=== PATIENT | female | born 1990 | race Caucasian/White ===

== ENCOUNTER → 2017-06-28 18:17 | Outpatient (CLI) | payer OTHER, SELFPAY ==
[2017-04-07 16:16] VITALS: BMI 24.2
[2017-04-08 03:30] VITALS: BP 85/50
[2017-04-08 06:00] VITALS: BP 86/58
[2017-06-28 19:18] LABS: Group B Strep DNA By PCR Negative (Negative); Internal Control PASS; Probe Check PASS; Specimen Processing Control PASS
== END ==
PROVIDERS: Family Provider Nurse Practitioner; PCP Nurse Practitioner; Visit Provider Obstetrics & Gynecology
DX: Z36.85 Encounter for antenatal screening for Streptococcus B (principal)
CPT/HCPCS: 87081; 87653

== ENCOUNTER 2017-07-22 11:07 | Inpatient (IN) | payer OTHER, SELFPAY ==
[2017-07-22 11:45] LABS: Hematocrit 34.1 % (37-47); Hemoglobin 11.4 g/dl (12.0-15.0); Mean Corp Hgb Conc 33.4 g/gl (32-36); Mean Corpuscular Hgb 31.9 pg (27.0-32.0); Mean Corpuscular Volume 95.5 fL (81-99); Mean Platelet Vol. 9.6 fl (6.2-12.0); Platelet Count 289 K/mm3 (150-450); RBC Distribution Width SD 46.7 fl (35.1-43.9); Red Blood Count 3.57 M/mm3 (4.2-5.4); White Blood Count 12.3 K/mm3 (4.4-11.0)
[2017-07-22] MEDS: Lactated Ringers 1,000 ML 50 ML IV (11:45)
[2017-07-22 11:46] VITALS: BMI 28.5
[2017-07-22 11:47] LABS: Scan Indicated on CBC? Y/N NO
[2017-07-22] MEDS: Oxytocin 30 units/NS 500 ml 30 UNITS/500 ML IV.SOLN IV (12:39)
--- NOTE | 2017-07-22 16:43 | PCM.PN.BLA ---
Progress Note LABOR PROGRESS NOTE. 38 3/7 wk SROM. Early labor. Prodromal Not feeling painful UCs. Some mild cramping only. AVSS Pitocin at 8 mIU/min EFM 120-130s with avg variability. Accels. Category I Occasional variable. UCs q 2-4+ mins CX: deferred due to SPROM A/P; 38 3/7 wk EGA SROM. Early labor, prodromal phase. Pitocin induction after SPROM. Continue pitocin for up to 24 hr prior to dx of failed induction.
[2017-07-22] MEDS: Nalbuphine 10 MG/ML Ampul IV (20:54)
[2017-07-22] MEDS: Ondansetron 4 MG/2 ML Vial IV (20:55)
[2017-07-22] MEDS: 0.9% Saline Lock 10 ML Syringe IV (20:55)
[2017-07-22] MEDS: Oxytocin 30 units/NS 500 ml 30 UNITS/500 ML IV.SOLN 334 UNITS IV (23:11)
--- NOTE | 2017-07-22 23:26 | PCM.OB.VAG ---
Vaginal Delivery Maternal Presentation: Active Labor, Spontaneous Rupture of Membranes Amniotic Membrane Rupture Type: Spontaneous at home Amniotic Fluid Description: Clear Final KATELIN: 08/02/17 Gestational age: 38 Weeks and 3 Days Date of Procedure: 07/22/17 Pre-Operative Diagnosis: IUP Post-Operative Diagnosis: IUP Surgery/ Procedure Performed: Spontaneous Vaginal Delivery Type of Anesthesia: Local with 2% lidocaine Description of Procedure: Spontaneous vaginal delivery of a viable female with Apgars of 8/9 with a normal three-vessel placenta and cord around the neck ?1 loose. No episiotomy. Second-degree midline laceration repaired in layers with 3-0 repeat suture under local. Sponge counts okay. Delivery physician: Karlos Moralez MD. Presentation: Vertex Placental Delivery Description: Spontaneous Placenta Disposition: [facility] Cord Vessel Description: 3 Vessels Cord Gases drawn per routine: ABG Cord Entanglement: Around neck x 1, loose Estimated Blood Loss: 250 cc A gender: Female (1 minute): 8 (5 minute): 9 Episiotomy Description: None Laceration: Midline, Perineal Extension/lac, 2nd degree Medications given after delivery: IV Pitocin Complications: None
--- NOTE | 2017-07-22 23:29 | PCM.DCVAG ---
Discharge Diet: No Restrictions Discharge Activity: May Shower, May Take a Tub Bath May resume sexual activity in: 4-6 weeks Additional Activity Instructions:: Nothing in the vagina for 4-6 weeks. You may return to work/school in 6 weeks. Call your doctor if you observe: Fever of 101 or Higher, Inability to urinate, Inability to have a bowel movement, Using more than one pad per hour Additional Instructions: If you experience any of the following, contact your healthcare provider. Bleeding that soaks a pad every hour for 2 hours Unrelieved incision or abdominal pain Swelling, redness, discharge or bleeding from your incision or episiotomy site Your incision begins to separate Problems urinating (including inability to urinate or burning while urinating). Visual changes Severe headache Flu-like symptoms Pain or redness in one of both of your breasts Pain, warmth, tenderness or swelling in your legs, especially the calf area Frequent nausea and vomiting Symptoms of depression or anxiety If you experience any of the following, call 911 or go to the nearest Emergency Room. Chest pain Problems breathing Seizure activity Partial or complete paralysis of a body part, slurred speech, weakness or drooping of the face, or a sudden inability to walk or hold your balance Allergies/Adverse Reactions: Allergies No Known Allergies Allergy (Verified 07/22/17 11:46) Medications to take at Discharge Vits [Prenatabs FA ] 1 tablet PO DAILY 04/07/17 Ranitidine [Zantac] 150 mg PO DAILY 04/07/17 Ferrous Sulfate 07/22/17 Please Follow Up With: Isabell Thomas MD - [phone] When: Call to make an appointment with your doctor in 6 weeks. Primary Care Physician: Brooklynn Camacho [Primary Care Provider] -
--- NOTE | 2017-07-22 23:30 | DCINST_ITS ---
Discharge Diet: No Restrictions Discharge Activity: May Shower, May Take a Tub Bath May resume sexual activity in: 4-6 weeks Additional Activity Instructions:: Nothing in the vagina for 4-6 weeks. You may return to work/school in 6 weeks. Call your doctor if you observe: Fever of 101 or Higher, Inability to urinate, Inability to have a bowel movement, Using more than one pad per hour Additional Instructions: If you experience any of the following, contact your healthcare provider. * Bleeding that soaks a pad every hour for 2 hours * Unrelieved incision or abdominal pain * Swelling, redness, discharge or bleeding from your incision or episiotomy site * Your incision begins to separate * Problems urinating (including inability to urinate or burning while urinating) . * Visual changes * Severe headache * Flu-like symptoms * Pain or redness in one of both of your breasts * Pain, warmth, tenderness or swelling in your legs, especially the calf area * Frequent nausea and vomiting * Symptoms of depression or anxiety If you experience any of the following, call 911 or go to the nearest Emergency Room. * Chest pain * Problems breathing * Seizure activity * Partial or complete paralysis of a body part, slurred speech, weakness or drooping of the face, or a sudden inability to walk or hold your balance Allergies/Adverse Reactions: Allergies No Known Allergies Allergy (Verified 07/22/17 11:46) Medications to take at Discharge Vits [Prenatabs FA ] 1 tablet PO DAILY 04/07/17 Ranitidine [Zantac] 150 mg PO DAILY 04/07/17 Ferrous Sulfate 07/22/17 Please Follow Up With: Isabell Thomas MD - [phone] When: Call to make an appointment with your doctor in 6 weeks. Primary Care Physician: Brooklynn Camacho [Primary Care Provider] -
[2017-07-22] MEDS: Oxytocin 30 units/NS 500 ml 30 UNITS/500 ML IV.SOLN 167 UNITS IV (23:41)
[2017-07-23] MEDS: 0.9% Saline Lock 10 ML Syringe IV (00:41)
[2017-07-23 03:45] VITALS: BP 114/75; PULSE 87; RESP 17; TEMP 37; O2SAT 95
[2017-07-23 08:24] VITALS: BP 115/83; PULSE 88; RESP 16; TEMP 36.9; O2SAT 96
[2017-07-23] MEDS: Ibuprofen 600 MG Tablet PO ×2 (08:39→14:46)
--- NOTE | 2017-07-23 10:49 | PCM.PN.OB ---
Subjective: Patient without complaints. Minimal vaginal bleeding. - Physical Exam Vital Signs AF, VSS Temp Pulse Resp BP Pulse Ox 98.4 F 88 16 115/83 H 96 07/23/17 08:24 07/23/17 08:24 07/23/17 08:24 07/23/17 08:24 07/23/17 08:24 Oxygen Delivery Method Room Air Weight: 155 lb 13.869 oz Body Mass Index (BMI) 28.5 Intake and Output for Last 24 Hours 07/21/17 07/22/17 07/23/17 23:59 23:59 23:59 Intake Total 410 / 410 Output Total 1025 / 1025 Balance 410 / 410 -1025 / -1025 Laboratory Tests Past 24 Hrs 07/22/17 07/22/17 11:30 11:30 WBC 12.3 H RBC 3.57 L Hgb 11.4 L Hct 34.1 L MCV 95.5 MCH 31.9 MCHC 33.4 RDW 14.0 RDW Differential 46.7 H Plt Count 289 MPV 9.6 Blood Type O POSITIVE Antibody Screen NEGATIVE Assessment/Plan Doing well. Continuing present care.
[2017-07-23 11:56] VITALS: BP 123/66; PULSE 108; RESP 16; TEMP 36.8; O2SAT 98
[2017-07-23 15:53] VITALS: BP 115/80; PULSE 93; RESP 16; TEMP 36.7; O2SAT 98
[2017-07-23 19:30] VITALS: BP 121/82; PULSE 95; RESP 17; TEMP 36.6; O2SAT 95
[2017-07-23 23:45] VITALS: BP 114/69; PULSE 92; RESP 17; TEMP 36.6; O2SAT 96
[2017-07-24 04:50] VITALS: BP 120/86; PULSE 108; RESP 18; TEMP 36.8; O2SAT 96
[2017-07-24] MEDS: Acetaminophen 500 MG Tablet 1000 MG PO (04:59)
[2017-07-24 08:00] VITALS: BP 116/74; PULSE 86; RESP 16; TEMP 36.9; O2SAT 95
--- NOTE | 2017-07-24 08:59 | PCM.PN.OB ---
Subjective: Patient without complaints. Breast-feeding going well. Minimal vaginal bleeding. Ready to go home. - Physical Exam Vital Signs AF, VSS Temp Pulse Resp BP Pulse Ox 98.4 F 86 16 116/74 95 07/24/17 08:00 07/24/17 08:00 07/24/17 08:00 07/24/17 08:00 07/24/17 08:00 Oxygen Delivery Method Room Air Weight: 155 lb 13.869 oz Body Mass Index (BMI) 28.5 Intake and Output for Last 24 Hours 07/22/17 07/23/17 07/24/17 23:59 23:59 23:59 Intake Total 410 / 410 Output Total 1025 / 1025 Balance 410 / 410 -1025 / -1025 Assessment/Plan Doing well. Will release to home with routine instructions. Follow-up in 6 weeks.
[2017-07-24 12:50] VITALS: BP 123/84; PULSE 108; RESP 18; TEMP 37
== END 2017-07-24 12:50 | disposition home or self-care (01) | DRG 775 ==
PROVIDERS: Admitting Provider Obstetrics & Gynecology; Family Provider Nurse Practitioner; PCP Nurse Practitioner; Visit Provider Obstetrics & Gynecology
DX: O42.02 Full-term premature rupture of membranes, onset of labor within 24 hours of rupture (principal); D64.9 Anemia, unspecified; O69.81X0 Labor and delivery complicated by cord around neck, without compression, not applicable or unspecified; O70.1 Second degree perineal laceration during delivery; O99.02 Anemia complicating childbirth; Z37.0 Single live birth; Z3A.38 38 weeks gestation of pregnancy
CPT/HCPCS: 59025; 59050; 85027; 86850; 86900; 99218; J7120; A4216; G0378; J2405

== ENCOUNTER → 2021-03-10 | Outpatient (CLI) | payer OTHER, SELFPAY | END | disposition home or self-care (01) | LOC: LABSPEC 03-11 06:20 | PROVIDERS: PCP Nurse Practitioner; Referring Provider Family Medicine; Visit Provider Family Medicine | DX: Z20.828 Contact with and (suspected) exposure to other viral communicable diseases (principal) | CPT/HCPCS: 87635; U0005; U0003 ==

== ENCOUNTER → 2022-07-27 | Outpatient (CLI) | payer BC, SELFPAY ==
[2022-07-30 00:07] LABS: Chlamydia By Nucleic Acid AMP Negative (Negative)
[2022-07-30 08:28] LABS: Gonococcus By Nucleic Acid AMP Negative (Negative)
[2022-08-03 13:36] LABS: HPV APTIMA, High Risk Negative (Negative)
== END | disposition home or self-care (01) ==
LOC: LABSPEC 14:35
PROVIDERS: PCP Family Medicine; Visit Provider Obstetrics & Gynecology
DX: Z34.90 Encounter for supervision of normal pregnancy, unspecified, unspecified trimester (principal)
CPT/HCPCS: 87086; 87491; 87591; 87624; 88175; G0145

== ENCOUNTER → 2022-08-12 | Outpatient (CLI) | payer BC, SELFPAY ==
[2022-08-12 13:36] LABS: Absolute Lymphocyte Count 1.67 X10^3/uL (0.83-4.51); Absolute Neutrophil Count 5.7 X10^3/uL (2.0-7.7); Basophil# 0.03 X10^3/uL; Basophil% 0.4 % (0-1); Eosinophil# 0.08 X10^3/uL; Hematocrit 38.8 % (37-47); Lymphocyte # 1.67 X10^3/ul (0.83-4.51); Lymphocyte % 20.7 % (19-41); Mean Corp Hgb Conc 33.5 g/dL (32-36); Mean Corpuscular Hgb 30.4 pg (27.0-32.0); Mean Corpuscular Volume 90.9 fL (81-99); Mean Platelet Vol. 9.2 fl (6.2-12.0); Monocyte# 0.57 X10^3/uL; Monocyte% 7.1 % (0-10); NRBC Flagged by Analyzer 0 % (0-5); Neutrophil % 70.4 % (47-70); Platelet Count 304 K/mm3 (150-450); RBC Distribution Width CV 12.3 % (11.6-14.6); RBC Distribution Width SD 40.6 fl (35.1-43.9); Red Blood Count 4.27 M/mm3 (4.2-5.4); White Blood Count 8.1 K/mm3 (4.4-11.0)
[2022-08-12 14:21] LABS: NATERA MAILED SPECIMEN
[2022-08-12 15:09] LABS: HIV - WCH Non-Reactive (Nonreactive); Hepatitis B Surface Antigen Non-Reactive (Nonreactive); Hepatitis C Antibody Non-Reactive (Nonreactive); Rubella IgG Reactive (Nonreactive); Syphilis Antibodies Non-reactive
== END | disposition home or self-care (01) ==
LOC: PAVLAB 13:01
PROVIDERS: PCP Family Medicine; Referring Provider Obstetrics & Gynecology; Visit Provider Obstetrics & Gynecology
DX: Z34.81 Encounter for supervision of other normal pregnancy, first trimester (principal); Z31.430 Encounter of female for testing for genetic disease carrier status for procreative management
CPT/HCPCS: 36415; 85025; 86703; 86762; 86780; 86803; 86850; 86900; 86901; 87340

== ENCOUNTER → 2022-12-14 | Outpatient (CLI) | payer BC, SELFPAY ==
[2022-12-14 15:34] LABS: Absolute Lymphocyte Count 1.15 X10^3/uL (0.83-4.51); Absolute Neutrophil Count 7.4 X10^3/uL (2.0-7.7); Basophil# 0.03 X10^3/uL; Basophil% 0.3 % (0-1); Eosinophil# 0.11 X10^3/uL; Eosinophils% 1.1 % (0-5); Hematocrit 27.4 % (37-47); Hemoglobin 9.1 g/dL (12.0-15.0); Lymphocyte # 1.15 X10^3/ul (0.83-4.51); Lymphocyte % 11.9 % (19-41); Mean Corp Hgb Conc 33.2 g/dL (32-36); Mean Corpuscular Hgb 32.2 pg (27.0-32.0); Mean Corpuscular Volume 96.8 fL (81-99); Mean Platelet Vol. 9.4 fl (6.2-12.0); Monocyte# 0.76 X10^3/uL; Monocyte% 7.9 % (0-10); NRBC Flagged by Analyzer 0 % (0-5); Neutrophil # 7.41 X10^3/uL (2.7-7.7); Neutrophil % 76.5 % (47-70); Platelet Count 284 K/mm3 (150-450); RBC Distribution Width SD 45.8 fl (35.1-43.9); Red Blood Count 2.83 M/mm3 (4.2-5.4); White Blood Count 9.7 K/mm3 (4.4-11.0)
[2022-12-14 16:15] LABS: Glucose Challenge Gest 1H 50g 134 mg/dL (70-140)
[2022-12-14 17:12] LABS: HIV - WCH Non-Reactive (Nonreactive); Syphilis Antibodies Non-reactive
== END | disposition home or self-care (01) ==
LOC: PAVLAB 14:48
PROVIDERS: PCP Family Medicine; Referring Provider Obstetrics & Gynecology; Visit Provider Obstetrics & Gynecology
DX: O09.90 Supervision of high risk pregnancy, unspecified, unspecified trimester (principal); Z13.1 Encounter for screening for diabetes mellitus; Z3A.00 Weeks of gestation of pregnancy not specified
CPT/HCPCS: 36415; 82950; 85025; 86703; 86780

== ENCOUNTER → 2023-01-13 | Outpatient (CLI) | payer BC, SELFPAY ==
[2023-01-13 15:13] LABS: Hematocrit 29.7 % (37-47); Hemoglobin 10.1 g/dL (12.0-15.0); Mean Corpuscular Hgb 33.8 pg (27.0-32.0); Mean Corpuscular Volume 99.3 fL (81-99); Mean Platelet Vol. 9.3 fl (6.2-12.0); Platelet Count 255 K/mm3 (150-450); RBC Distribution Width CV 13.8 % (11.6-14.6); RBC Distribution Width SD 49.6 fl (35.1-43.9); Red Blood Count 2.99 M/mm3 (4.2-5.4); White Blood Count 10.5 K/mm3 (4.4-11.0)
== END | disposition home or self-care (01) ==
PROVIDERS: PCP Family Medicine; Referring Provider Obstetrics & Gynecology; Visit Provider Obstetrics & Gynecology
DX: D64.9 Anemia, unspecified (principal)
CPT/HCPCS: 36415; 85027

== ENCOUNTER → 2023-02-07 | Outpatient (CLI) | payer BC, SELFPAY | END | disposition home or self-care (01) | LOC: LABSPEC 16:49 | PROVIDERS: PCP Family Medicine; Referring Provider Nurse Practitioner Women's Health; Visit Provider Nurse Practitioner Women's Health | DX: Z34.90 Encounter for supervision of normal pregnancy, unspecified, unspecified trimester (principal) | CPT/HCPCS: 87081 ==

== ENCOUNTER → 2023-02-08 | Outpatient (CLI) | payer BC, SELFPAY ==
--- NOTE | 2023-02-08 14:11 | US_ITS ---
INDICATION: growth with DANIEL EXAMINATION: Ultrasound US OB Limited 1 Or More Fetus TECHNIQUE: transabdominal pelvic ultrasound was performed. Grayscale, spectral waveform, and color flow Doppler evaluation of the adnexa. COMPARISON: None. LMP: 05/28/2022 Beta-hCG: Unknown. Provided EGA: 36 weeks 4 days FINDINGS: INTRAUTERINE GESTATION(s): Single. ESTIMATED GESTATIONAL AGE: 36 weeks 2 days ESTIMATED DUE DATE (KATELIN): 03/08/2023 HEART MOTION is 155 bpm. AMNIOTIC FLUID INDEX (DANIEL): 14.4 cm ESTIMATED WEIGHT: 2826 g or 6 lbs. 4 oz. Percentile 39th%. BIOPHYSICAL PROFILE (BPP): Not assessed. PRESENTATION: Breech PLACENTA: Fundal. There is no placenta previa or abruption. CERVIX: The cervix is not visualized. US/OB Limited With Biometrics IMPRESSION: Single live intrauterine of 36 weeks 2 days. Electronically Signed: Bill Yates MD at 0:32 EDT ,
== END | disposition home or self-care (01) ==
PROVIDERS: PCP Family Medicine; Referring Provider Advanced Practice Midwife; Visit Provider Advanced Practice Midwife
DX: O32.1XX0 Maternal care for breech presentation, not applicable or unspecified (principal); Z3A.00 Weeks of gestation of pregnancy not specified
CPT/HCPCS: 76816

== ENCOUNTER 2023-02-11 06:30 | Outpatient (CLI) | payer BC, SELFPAY ==
[2023-02-11] MEDS: Lactated Ringers 1,000 ML 125 ML IV (06:50)
[2023-02-11 06:51] VITALS: BMI 28.2
[2023-02-11 06:55] VITALS: BP 111/83; PULSE 108; PULSE 93; O2SAT 99
[2023-02-11 07:56] VITALS: BP 113/79; PULSE 99
--- NOTE | 2023-02-11 08:15 | OP.PCM_ITS ---
Problems Associated Problem List Diagnoses (1) Breech presentation: (2) Heartburn during : (3) Anemia: (4) Seasonal allergies: (5) Supervision of high risk , antepartum: (6) : Report of Operation Date of Procedure: 02/11/23 Pre-Operative Diagnosis: 33 y/o @ 37 weeks 0 days, breech presentation, desires external version Post-Operative Diagnosis: 33 y/o @ 37 weeks 0 days, breech presentation, desires external version Surgery/Procedure Performed:: external cephalic version Description of Surgical Findings:: The risks, benefits, and alternatives of the procedure were dicussed with the patient . The fetus was found to be in breech presentation informed by ultrasound. DANIEL 10.0. Patient had an IV in place, normal amniotic fluid, no contraindications to a vaginal delivery, and reactive nonstress test prior to the procedure. Patient was placed in the dorsal supine position with a leftward tilt. Ultrasound gel was applied to the patient's abdomen and using constant upward pressure to elevate the buttocks out of the pelvic inlet constant pressure was applied to the buttocks and to the area behind the back of the neck and head to encourage a forward roll of the fetus. Constant pressure was applied and slowly the infant was converted to a RLQ presentation. while the ultrasound was performed the fetus moved back to the ruq. The procedure was repeated 2 more times and each time the fetus reverted to the ruq. After 10 minutes the procedure was aborted. Patient was replaced on the NST and monitored to assure reassuring status. No complications. Surgeon: Melany Castorena well head pumper: None Type of Anesthesia: None Multi Select Codes Urinary/Genital Urinary/Genital CPT Codes: 11557 ECV
--- NOTE | 2023-02-11 08:22 | HP.PCM.OB_ITS ---
HPI - General HPI Narrative LUCIEN MARTELL, is a 33 F who presents Maternal Data Information KATELIN Calculator Estimated Delivery Date Method Current WG Current Estimate 03/04/23 LMP (Certain) 37w 0d PFSH PFSH Medical History History of HPV infection Home Medications vits,calcium no.78-iron fumarate-folic acid 29 mg-1 mg tablet (Prenatabs FA) 1 tab PO DAILY 04/07/17 [History Last Taken 02/10/23 22:00] ferrous sulfate 325 mg (65 mg iron) tablet (Feosol) 325 mg PO DAILY 02/11/23 [History Last Taken 02/10/23 08:00] magnesium 200 mg tablet 200 mg PO DAILY 02/11/23 [History Last Taken 02/10/23 22:00] omeprazole 20 mg-sodium bicarbonate 1.1 gram capsule (Zegerid) 1 cap PO DAILY 02/11/23 [History Last Taken 02/10/23 08:00] Allergy/AdvReac Type Severity Reaction Status Date / Time hydrocodone [From Vicodin] AdvReac Unknown vomitting Verified 02/11/23 06:52 Family History Grandmother Colon cancer, Onset Age: 62 maternal Grandfather Pancreatic cancer, Onset Age: 62 Maternal Surgical History History of appendectomy [place] teeth extracted Social History adopted: No household members: spouse and children number of children: 1 current occupational status: employed current occupation: [employer] current occupational exposures/hazards: No pets and animals: No history of recent travel: Yes ([place] in January) out of state: Yes out of country: No sexually active: Yes Smoking Status: Never smoker alcohol intake: never substance use type: does not use well-balanced diet: rarely or never caffeine: Yes (half a cup of coffee or pop daily) eating out: 1-3 times/week during the past year weight has: remained stable what type of physical activity do you participate in: none artis/taoism: Adventist seatbelt use: always do you feel safe at home: Yes additional social history: - 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 History 2 Elective abortions Hx Para 1 Spontaneous abortions Hx # Term Pregnancies Ectopic pregnancies Hx # Pregnancies Multiple births # of living children 1 Past Pregnancies Del. Date Name GA/Weeks Outcome Route Bth Weight Infant Gen Labor Lgth Anesthesia Del Locatn Provider FOB 07/22/17 Theia 38 live - full term 7#3oz Female 16 Hr none [facility] [place] Delivery Date: 07/22/17 Last Updated by: Evie Soni IOL- water broke before contractions Visit Details Expected Delivery Route/Plan Labor Preferences- CB/BF classes: labor support person: Chuck labor intervention preferences: [] pain management options preferred: limited cut cord/dad catch: yes : yes PP control planned: discussed discussed possible routes of delivery and associated risks: [] special requests: [] Plans Covid status: 2 initially Flu vaccine: declines Tdap vaccine: declines Rhogam: na LARC form signed: completed Problem list reviewed and updated with the most current plan of care details and appropriate orders placed. Relevant counseling for the gestational age provided. Continue routine care and follow up unless otherwise noted in visit notes/problem list details OB Flowsheet Initial Weight: Not Recorded Date -?-?-?-?-?-?-?-?-?-?-?-?- EGA Weight BP Urine Prot -?-?-?-?-?-?-?-?-?-?-?-?- Glucose FHR FuHt Pres Dilation -?-?-?-?-?-?-?-?-?-?-?-?- Effaced St Visit Note 07/27/22 -?-?-?-?-?-?-?-?-?-?-?-?- 8w 4d 126 lb 8 oz 121/81 -?-?-?-?-?-?-?-?-?-?-?-?- 185 -?-?-?-?-?-?-?-?-?-?-?-?- JV- single live IUP measuring 9 weeks 0 days, by LMP is 8 weeks 4 days and consistent with LMP. desires NIPT 08/24/22 -?-?-?-?-?-?-?-?-?-?-?-?- 12w 4d 121 lb 8 oz 121/85 -?-?-?-?-?-?-?-?-?-?-?-?- 160 -?-?-?-?-?-?-?-?-?-?-?-?- SM- SM- no vb cramping co some h eadache 09/20/22 -?-?-?-?-?-?-?-?-?-?-?-?- 16w 3d 123 lb 4 oz 121/81 Nega tive -?-?--?-?-?-?-?-?-?-?-?-?- Negative 165 -?-?-?-?-?-?-?-?-?-?-?-?- Lc- doing well. no concerns. declines afp. has anatomy scheduled. 10/19/22 -?-?-?-?-?-?-?-?--?-?-?-?- 20w 4d 128 lb 6 oz 112/68 Nega tive -?-?-?-?-?-?-?-?-?-?-?-?- Negative 156 -?-?-?-?-?-?-?-?-?-?-?-?- MH-No Vb, LOF. G ood FM. Denies concerns 11/16/22 -?-?-?-?-?-?-?-?-?-?-?-?- 24w 4d 134 lb 6 oz 111/74 Nega tive -?-?-?-?-?-?-?-?-?-?-?-?- Negative 155 24 -?-?-?-?-?-?--?-?-?-?-?-?- JV- no lof, vagi nal bleeding, or dec fm. gct ordered. 12/14/22 -?-?-?-?-?-?-?-?-?-?-?-?- 28w 4d 139 lb 4 oz 107/73 Nega tive -?-?-?-?-?-?-?--?-?-?-?-?- Negative 145 28 -?-?-?-?-?-?-?-?-?-?-?-?- kw-+fm. no lof/v b/ctx. no concerns today. 12/27/22 -?-?-?-?-?-?-?-?-?-?-?-?- 30w 3d 142 lb 4 oz 115/70 Nega tive -?-?-?-?-?-?-?-?-?-?-?-?- Negative 142 30 -?-?-?-?-?-?-?-?-?-?-?-?- LC- no lof/vb/ct x. good fm. taking pepcid for increased heart burn. 01/13/23 -?-?-?-?-?-?-?-?-?-?-?-?- 32w 6d 148 lb 4 oz 116/82 Nega tive -?-?-?-?-?-?-?-?-?-?-?-?- Negative 164 31 -?--?-?-?-?-?-?-?-?-?-?-?- JV- still strugg ling with heart burn despite 40 mg pepcid. will try OTC zegrid and let us know how that works. no other complaints. 01/27/23 -?-?-?-?-?-?--?-?-?-?-?-?- 34w 6d 150 lb 4 oz 125/76 Nega tive -?-?-?-?-?-?-?-?-?-?-?-?- Negative 140 34 Breech -?-?-?-?-?-?-?-?-?-?-?-?- KW-no lof/vb/ctx . good fm. Desires Version. US ordered 02/07/23 -?-?-?-?-?-?-?-?-?-?-?-?- 36w 3d 153 lb 4 oz 114/66 Nega tive -?-?-?-?-?-?-?-?-?-?-?-?- Negative 141 35 Cephalic 1 -?-?-?-?-?-?-?-?-?-?-?-?- 40 -2 MH-No VB, LOF. Good FM. States feels like baby turned. US tomorrow. MH-No VB, LOF. Good FM. Stat es feels like baby turned. US tomorrow. GBS done NST FHR Rate Baby A Baseline: 140 Variability:: Moderate Accelerations:: 15 x 15 Decelerations:: None NST Reactive:: Yes FHR Category:: Category I ROS Constitutional Constitutional: Denies change in weight, fatigue, fever(s), headache(s), poor appetite or weakness Eyes Eyes: Denies blurry vision, change in vision, seeing flashes or spots in vision ENT HEENT: Denies dizziness, headache(s), loss taste/smell or sore throat Cardiovascular Cardiovascular: Denies chest pain, dizziness, dyspnea, irregular heart rhythm, leg edema, palpitations, rapid heart rate or vomiting Respiratory/Chest Respiratory/Chest: Denies chest tightness, cough, dyspnea or breast pain Gastrointestinal Gastrointestinal: Denies abdominal pain, anorexia, constipation, cramping, diarrhea, hemorrhoids, vomiting or weight changes Genitourinary Genitourinary: Denies dysuria, flank pain, genital lesions, genital pain, urinary frequency or urinary urgency Musculoskeletal Musculoskeletal: Denies back pain, difficulty walking, joint pain, limited range of motion, muscle cramps or numbness Integumentary Integumentary: Denies lesions or unusual bruising Neurologic Neurologic: Denies abnormal movements, abnormal speech, dizziness, numbness, seizure-like activity or syncope Psychiatric Psychiatric: Denies anxiety, behavioral changes, change in appetite, change in libido, cognitive impairment, confusion, depression, difficulty concentrating, hallucinations or suicidal thoughts Endocrine Endocrinology: Denies excessive sweating, polydipsia or polyuria Hematologic/Lymphatic Hematologic/Lymphatic: Denies easy bleeding, easy bruising or lymphadenopathy Allergic/Immunologic Allergic/Immunologic: Denies itchy eyes, lip swelling, seasonal rhinorrhea, rhinitis, throat swelling, tongue swelling, eczemia, wheezing or asthma Vital Signs Vital Signs Vital Signs: 02/11/23 06:55 02/11/23 06:55 02/11/23 06:55 Pulse Rate 93 108 H Blood Pressure 111/83 H BP Systolic 111 BP Diastolic 83 Pulse Ox 02/11/23 06:55 02/11/23 07:56 02/11/23 07:56 Pulse Rate 99 Blood Pressure 113/79 BP Systolic 113 BP Diastolic 79 Pulse Ox 99 Weight Weight: 154 lb 5.177 oz Body Mass Index (BMI) 28.2 Physical Exam Const alert, oriented x3, no apparent distress and healthy appearing General Appearance: cooperative; Negative for anxious HEENT normocephalic Face and Sinus: normal facial exam Eyes EOMs intact bilaterally and no scleral icterus General Eye: normal appearance of both eyes Neck full ROM and supple Lymph Lymphatic: no lymphadenopathy noted Chest Chest: abnormal inspection of the chest Resp normal respiratory effort Effort and Inspection: able to speak in complete sentences Cardio regular rate GI soft to palpation and non-tender Inspection: gravid Palpation: soft; Negative for tender Back/Spine no CVA tenderness Extremity normal to inspection, full ROM and no clubbing, cyanosis or edema General Extremity: Negative for calf tenderness or edema Skin Lesions: no lesions Rashes: no rashes Psych mental status grossly normal Labs Labs Labs: Blood Type O POSITIVE Antibody Screen NEGATIVE Hct 29.7 % (37-47) L Hgb 10.1 g/dL (12.0-15.0) L Obstetrics US Syphilis Total Ab Non-reactive Rubella IgG Antibody Reactive (Nonreactive) Hep Bs Antigen Non-Reactive (Nonreactive) Chlamydia DNA (EMILIA) Negative (Negative) Neisseria gonorrhoeae DNA (EMILIA) Negative (Negative) HIV 1&2 Antibody Non-Reactive (Nonreactive) Glucose 1 Hr 50 gm 134 mg/dL (70-140) Group B Strep DNA Negative (Negative) Rhogam given: No Assessment & Plan (1) Breech presentation: QUALIFIERS: Fetus number: single or unspecified fetus Qualified Code(s): O32.1XX0 - Maternal care for breech presentation, not applicable or unspecified COMMENT: Feels cephalic. US 02/08. desires External version scheduled 02/11 at 730. needs to arrive at 630 PLAN: plan is to attempt external cephalic version. risks of stress causing heart rate changes, placental abruption, membrane rupture, and need for immediate section if any of these were to occur were discussed. A consent form was signed and NST was found to be adequate. -DANIEL 10, frannie breech presentation with head to right upper quadrant back to left and facing up. (2) Heartburn during : (3) Anemia: QUALIFIERS: Anemia type: iron deficiency Iron deficiency anemia type: unspecified iron deficiency Qualified Code(s): D50.9 - Iron deficiency anemia, unspecified COMMENT: start iron supplement. repeat cbc at 32 weeks. Improved (4) Seasonal allergies: (5) Supervision of high risk , antepartum: COMMENT: JUNIOR, KATELIN 03/04/23, MARK Meza, Chuck (6) : QUALIFIERS: Weeks of gestation: 32 weeks Qualified Code(s): Z3A.32 - 32 weeks gestation of COMMENT: NIPT low risk, carrier testing neg. . nl anatomy
== END 2023-02-11 10:29 | disposition home or self-care (01) ==
LOC: WPOUT 06:41 → WP 06:41
PROVIDERS: PCP Family Medicine; Referring Provider Obstetrics & Gynecology; Visit Provider Obstetrics & Gynecology
DX: O32.1XX0 Maternal care for breech presentation, not applicable or unspecified (principal); Z3A.37 37 weeks gestation of pregnancy; O99.891 Other specified diseases and conditions complicating pregnancy; R12 Heartburn; O99.013 Anemia complicating pregnancy, third trimester; D50.9 Iron deficiency anemia, unspecified; O99.513 Diseases of the respiratory system complicating pregnancy, third trimester; J30.2 Other seasonal allergic rhinitis
CPT/HCPCS: 96360; 96361; 59025; 59050; 76815; 99221; J7120; G0378

== ENCOUNTER 2023-02-20 11:10 | Outpatient (CLI) | payer BC, SELFPAY ==
[2023-02-20] VITALS (13 sets, daily range): BP systolic 120–135; BP diastolic 81–102; PULSE 68–100; TEMP 36.7; O2SAT 98–99; BMI 28.4
[2023-02-20] MEDS: Lactated Ringers 1,000 ML 999 ML IV (12:40)
[2023-02-20 12:48] LABS: Hematocrit 34.4 % (37-47); Hemoglobin 11.7 g/dL (12.0-15.0); Mean Corpuscular Hgb 33.6 pg (27.0-32.0); Mean Corpuscular Volume 98.9 fL (81-99); Mean Platelet Vol. 9.6 fl (6.2-12.0); Platelet Count 292 K/mm3 (150-450); RBC Distribution Width CV 14.6 % (11.6-14.6); RBC Distribution Width SD 51.5 fl (35.1-43.9); Red Blood Count 3.48 M/mm3 (4.2-5.4); White Blood Count 9.8 K/mm3 (4.4-11.0)
[2023-02-20 13:02] LABS: AST(SGOT) 21 U/L (15-37); Alanine Aminotransfer ALT/SGPT 20 U/L (13-56); Creatinine, Serum 0.59 mg/dL (0.55-1.02); EST Glomerular Filtration Rate 125 mL/min (>60); Est Glom Filt Rate - Afr Amer 151 mL/min (>60); Estimated Creatinine Clearance 106.26 ml/min; Uric Acid 3.7 mg/dL (2.6-6.0)
[2023-02-20 13:32] LABS: Protein, Urine (Random) 8.3 mg/dL (<11.9); Protein:Creat Ratio 444 mg/g CRE (0-200)
--- NOTE | 2023-02-27 09:57 | OB.TRI.PN_ITS ---
Progress Notes Date of Service: 02/20/23 Progress Note: Patient presents for triage evaluation secondary to decreased movement FHT: 140 moderate variability reactive no decelerations category I tracing [place]: Irregular contractions Assessment and plan: Decreased movement, initial blood pressures elevated preeclampsia work-up done and the only abnormality was elevated protein. Repeat blood pressures within normal limits reactive NST, reassuring maternal and status patient discharged to home to follow-up in the office this week for BPP and repeat blood pressure checks. See problem list details for additional plan information. Laboratory Studies: Laboratory Tests 02/20/23 Range/Units 12:35 WBC 9.8 (4.4-11.0) K/mm3 RBC 3.48 L (4.2-5.4) M/mm3 Hgb 11.7 L (12.0-15.0) g/dL Hct 34.4 L (37-47) % MCV 98.9 (81-99) fL MCH 33.6 H (27.0-32.0) pg MCHC 34.0 (32-36) g/dL RDW Std Deviation 51.5 H (35.1-43.9) fl RDW Coeff of Shruthi 14.6 (11.6-14.6) % Plt Count 292 (150-450) K/mm3 MPV 9.6 (6.2-12.0) fl Creatinine 0.59 (0.55-1.02) mg/dL Estim Creat Clear Calc 106.26 ml/min Est GFR (MDRD) Af Amer 151 (>60) mL/min Est GFR (MDRD) Non-Af 125 (>60) mL/min Uric Acid 3.7 (2.6-6.0) mg/dL AST 21 (15-37) U/L ALT 20 (13-56) U/L U Random Total Protein 8.3 (<11.9) mg/dL Urine Creatinine 18.70 (NO RANGE EST.) mg/dL Protein/Creatinin Ratio 444 H (0-200) mg/g CRE Blood Type O POSITIVE Antibody Screen NEGATIVE Charges/Coding Procedures Urinary/Genital 52xxx-59xxx: 82828-01 non-stress test Interp
== END 2023-02-20 14:00 | disposition home or self-care (01) ==
LOC: WPOUT 11:15 → WP 11:15
PROVIDERS: PCP Family Medicine; Visit Provider Obstetrics & Gynecology
DX: O36.8190 Decreased fetal movements, unspecified trimester, not applicable or unspecified (principal); Z3A.00 Weeks of gestation of pregnancy not specified; O99.891 Other specified diseases and conditions complicating pregnancy; R03.0 Elevated blood-pressure reading, without diagnosis of hypertension
CPT/HCPCS: 96360; 36415; 59025; 59050; 82565; 82570; 84156; 84450; 84460; 84550; 85027; 86850; 86900; 86901; J7120

== ENCOUNTER → 2023-02-21 | Outpatient (CLI) | payer BC, SELFPAY ==
[2023-02-21 16:05] LABS: Protein, Urine (Random) 9.8 mg/dL (<11.9); Protein:Creat Ratio 516 mg/g CRE (0-200)
== END | disposition home or self-care (01) ==
LOC: LABSPEC 15:25
PROVIDERS: PCP Family Medicine; Referring Provider Registered Nurse; Visit Provider Registered Nurse
DX: O12.10 Gestational proteinuria, unspecified trimester (principal); Z3A.00 Weeks of gestation of pregnancy not specified
CPT/HCPCS: 82570; 84156

== ENCOUNTER 2023-02-23 12:15 | Inpatient (IN) | payer BC, SELFPAY ==
[2023-02-23] VITALS (12 sets, daily range): BP systolic 112–130; BP diastolic 65–94; PULSE 60–98; RESP 14–18; TEMP 36.2–37.4; O2SAT 97–100; BMI 28.7
[2023-02-23] MEDS: Lactated Ringers 1,000 ML 999 ML IV (13:18)
[2023-02-23] MEDS: Acetaminophen 500 MG Tablet 1000 MG PO ×2 (13:19→20:10)
[2023-02-23 13:25] LABS: Absolute Lymphocyte Count 1.17 X10^3/uL (0.83-4.51); Absolute Neutrophil Count 5.9 X10^3/uL (2.0-7.7); Basophil# 0.03 X10^3/uL; Basophil% 0.4 % (0-1); Eosinophil# 0.07 X10^3/uL; Eosinophils% 0.9 % (0-5); Hematocrit 33.1 % (37-47); Hemoglobin 10.8 g/dL (12.0-15.0); Lymphocyte # 1.17 X10^3/ul (0.83-4.51); Lymphocyte % 14.5 % (19-41); Mean Corp Hgb Conc 32.6 g/dL (32-36); Mean Corpuscular Hgb 32.8 pg (27.0-32.0); Mean Corpuscular Volume 100.6 fL (81-99); Mean Platelet Vol. 9.9 fl (6.2-12.0); Monocyte# 0.79 X10^3/uL; Monocyte% 9.8 % (0-10); NRBC Flagged by Analyzer 0 % (0-5); Neutrophil # 5.91 X10^3/uL (2.7-7.7); Neutrophil % 73.2 % (47-70); Platelet Count 273 K/mm3 (150-450); RBC Distribution Width CV 14.6 % (11.6-14.6); Red Blood Count 3.29 M/mm3 (4.2-5.4); White Blood Count 8.1 K/mm3 (4.4-11.0)
--- NOTE | 2023-02-23 13:48 | HP.PCM.OB_ITS ---
HPI - General General Date of Admission: 02/23/23 HPI Narrative LUCIEN MARTELL, is a 33 F who presents with breech presentation and oligohydramnios Maternal Data Information KATELIN Calculator Estimated Delivery Date Method Current WG Current Estimate 03/04/23 LMP (Certain) 38w 5d PFSH [facility] Medical History (Updated 02/23/23 @ 14:[address] Linnette Pavon MD) Family history of hearing loss at age younger than 7 years Headache History of HPV infection Oligohydramnios Home Medications vits,calcium no.78-iron fumarate-folic acid 29 mg-1 mg tablet (Prenatabs FA) 1 tab PO DAILY 04/07/17 [History Last Taken 02/19/23 20:00] ferrous sulfate 325 mg (65 mg iron) tablet (Feosol) 325 mg PO DAILY 02/11/23 [History Last Taken 02/19/23 08:00] magnesium 200 mg tablet 200 mg PO DAILY 02/11/23 [History Last Taken 02/19/23 20:00] omeprazole 20 mg-sodium bicarbonate 1.1 gram capsule (Zegerid) 1 cap PO DAILY 02/11/23 [History Last Taken 02/19/23 08:00] Allergy/AdvReac Type Severity Reaction Status Date / Time hydrocodone [From Vicodin] AdvReac Unknown vomitting Verified 02/23/23 14:03 Family History Grandmother Colon cancer, Onset Age: 62 maternal Grandfather Pancreatic cancer, Onset Age: 62 Maternal Surgical History History of appendectomy [place] teeth extracted Social History adopted: No household members: spouse and children number of children: 1 current occupational status: employed current occupation: [employer] current occupational exposures/hazards: No pets and animals: No history of recent travel: Yes ([place] in [place]) out of state: Yes out of country: No sexually active: Yes Smoking Status: Never smoker alcohol intake: never substance use type: does not use well-balanced diet: rarely or never caffeine: Yes (half a cup of coffee or pop daily) eating out: 1-3 times/week during the past year weight has: remained stable what type of physical activity do you participate in: none artis/roman catholic: Sikh seatbelt use: always do you feel safe at home: Yes additional social history: - 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 History 2 Elective abortions Hx Para 1 Spontaneous abortions Hx # Term Pregnancies Ectopic pregnancies Hx # Pregnancies Multiple births # of living children 1 Past Pregnancies Del. Date Name GA/Weeks Outcome Route Bth Weight Gen Labor Lgth Anesthesia Del Locatn Provider FOB 07/22/17 Theia 38 live - full term 7#3oz Female 16 Hr none [facility] [place] Delivery Date: 07/22/17 Last Updated by: Evie Soni IOL- water broke before contractions Visit Details Expected Delivery Route/Plan LTCS for breech Plans Covid status: 2 initially Flu vaccine: declines Tdap vaccine: declines Rhogam: na LARC form signed: completed movement and labor precautions reviewed. Problem list reviewed and updated with the most current plan of care details and appropriate orders placed. Relevant counseling for the gestational age provided. Continue routine care and follow up unless otherwise noted in visit notes/problem list details OB Flowsheet Initial Weight: Not Recorded Date -?-?-?-?-?-?-?-?-?-?-?-?- EGA Weight BP Urine Prot -?-?-?-?-?-?-?-?-?-?-?-?- Glucose FHR FuHt Pres Dilation -?-?-?-?-?-?-?-?-?-?-?-?- Effaced St Visit Note 07/27/22 -?-?-?-?-?-?-?-?-?-?-?-?- 8w 4d 126 lb 8 oz 121/81 -?-?-?-?-?-?-?-?-?-?-?-?- 185 -?-?-?-?-?-?-?-?-?-?-?-?- JV- single live IUP measuring 9 weeks 0 days, by LMP is 8 weeks 4 days and consistent with LMP. desires NIPT 08/24/22 -?-?-?-?-?-?-?-?-?-?-?-?- 12w 4d 121 lb 8 oz 121/85 -?-?-?-?-?-?-?-?-?-?-?-?- 160 -?-?-?-?-?-?-?-?-?-?-?-?- SM- SM- no vb cramping co some h eadache 09/20/22 -?-?-?-?-?-?-?-?-?-?-?-?- 16w 3d 123 lb 4 oz 121/81 Nega tive -?-?-?-?-?-?-?-?-?-?-?-?- Negative 165 -?-?-?-?-?-?-?-?-?-?-?-?- Lc- doing well. no concerns. declines afp. has anatomy scheduled. 10/19/22 -?-?-?-?-?-?-?-?-?-?-?-?- 20w 4d 128 lb 6 oz 112/68 Nega tive -?-?-?-?-?-?-?-?-?-?-?-?- Negative 156 -?-?-?-?-?-?-?-?-?-?-?-?- MH-No Vb, LOF. G ood FM. Denies concerns 11/16/22 -?-?-?-?-?--?-?-?-?-?-?-?- 24w 4d 134 lb 6 oz 111/74 Nega tive -?-?-?-?-?-?-?-?-?-?-?-?- Negative 155 24 -?-?-?-?-?-?-?-?-?-?-?-?- JV- no lof, vagi nal bleeding, or dec fm. gct ordered. 12/14/22 -?-?-?-?-?-?-?-?-?-?-?-?- 28w 4d 139 lb 4 oz 107/73 Nega tive -?-?-?-?-?-?-?-?-?-?-?-?- Negative 145 28 -?-?-?-?-?-?-?-?-?-?-?-?- kw-+fm. no lof/v b/ctx. no concerns today. 12/27/22 -?-?-?-?-?-?-?-?-?-?-?-?- 30w 3d 142 lb 4 oz 115/70 Nega tive -?-?-?-?-?-?-?-?-?-?-?-?- Negative 142 30 -?-?-?-?-?-?-?-?-?-?-?-?- LC- no lof/vb/ct x. good fm. taking pepcid for increased heart burn. 01/13/23 -?-?-?-?-?-?-?-?-?-?-?-?- 32w 6d 148 lb 4 oz 116/82 Nega tive -?-?-?-?-?-?-?-?-?-?-?-?- Negative 164 31 -?-?-?-?-?-?-?-?-?-?-?-?- JV- still strugg ling with heart burn despite 40 mg pepcid. will try OTC zegrid and let us know how that works. no other complaints. 01/27/23 -?-?-?-?-?-?-?-?-?-?-?-?- 34w 6d 150 lb 4 oz 125/76 Nega tive -?-?-?-?-?-?-?-?-?-?-?-?- Negative 140 34 Breech -?-?-?-?-?-?-?-?-?-?-?-?- KW-no lof/vb/ctx . good fm. Desires Version. US ordered 02/07/23 -?-?-?-?-?-?-?-?-?-?-?-?- 36w 3d 153 lb 4 oz 114/66 Nega tive -?-?-?-?-?-?-?-?-?-?-?-?- Negative 141 35 Cephalic 1 -?-?-?-?-?-?-?-?-?-?-?-?- 40 -2 MH-No VB, LOF. Good FM. States feels like baby turned. US tomorrow. MH-No VB, LOF. Good FM. Stat es feels like baby turned. US tomorrow. GBS done 02/14/23 -?-?-?-?-?-?-?-?-?-?-?-?- 37w 3d 157 lb 116/70 Negative -?-?-?-?-?-?-?-?-?-?-?-?- Negative 145 37 Breech -?-?-?-?-?-?-?-?-?-?-?-?- SM- still breech schedule for cs no vb lof good fm 02/21/23 -?-?-?-?-?-?-?-?-?-?-?-?- 38w 3d 158 lb 4 oz 137/88 Nega tive -?-?-?-?-?-?-?-?-?-?-?-?- Negative 130 38 Breech -?-?-?-?-?-?-?-?-?-?-?-?- LC-no ctx/vb/lof . good fm. has c/s scheduled for tuesday. consent obtained, soap and drink provided. NST FHR Rate Baby A Baseline: 130 Variability:: Moderate Accelerations:: 15 x 15 Decelerations:: None NST Reactive:: Yes FHR Category:: Category I Uterine Activity:: irregular ROS Constitutional Constitutional: Reports systems reviewed and no addt'l complaints, except as documented Eyes Eyes: Denies change in vision ENT HEENT: Reports systems reviewed and no addt'l complaints, except as documented; Denies headache(s) Cardiovascular Cardiovascular: Reports systems reviewed and no addt'l complaints, except as documented; Denies chest pain or dyspnea Respiratory/Chest Respiratory/Chest: Reports systems reviewed and no addt'l complaints, except as documented Gastrointestinal Gastrointestinal: Reports systems reviewed and no addt'l complaints, except as documented; Denies abdominal pain Genitourinary Genitourinary: Reports systems reviewed and no addt'l complaints, except as documented, contractions Details: present (irregular) and movement Details: present; Denies dysuria or genital lesions Musculoskeletal Musculoskeletal: Reports systems reviewed and no addt'l complaints, except as documented Neurologic Neurologic: Reports systems reviewed and no addt'l complaints, except as documented Endocrine Endocrinology: Reports systems reviewed and no addt'l complaints, except as documented Vital Signs Vital Signs Vital Signs: 02/23/23 12:54 Temperature 98.4 F Temperature Source Temporal Pulse Rate 92 Respiratory Rate 16 Blood Pressure 128/94 H Blood Pressure Mean 105 Blood Pressure Source Monitor Blood Pressure Position Semi-Fowlers Blood Pressure Location Left Arm Pulse Ox 100 Oxygen Delivery Method Room Air Weight Weight: 157 lb Body Mass Index (BMI) 28.7 Physical Exam Const alert, oriented x3, no apparent distress and healthy appearing HEENT normocephalic and moist oral mucous membranes Head and Scalp: atraumatic Neck full ROM, no lymphadenopathy, supple and thyroid normal General: trachea midline Lymph Lymphatic: no lymphadenopathy noted Chest inspection of chest normal Resp normal respiratory effort Cardio regular rate GI normal to inspection, nondistended, normoactive bowel sounds, soft to palpation and non-tender Inspection: gravid Extremity normal to inspection General Extremity: Negative for edema Skin no rashes or lesions noted Neuro no focal motor deficits and deep tendon reflexes 2+ bilaterally Motor Exam: strength 5/5 throughout and clonus absent Psych mental status grossly normal Labs Labs Labs: Blood Type O POSITIVE Antibody Screen NEGATIVE Hct 33.1 % (37-47) L Hgb 10.8 g/dL (12.0-15.0) L Obstetrics US Syphilis Total Ab Non-reactive Rubella IgG Antibody Reactive (Nonreactive) Hep Bs Antigen Non-Reactive (Nonreactive) Chlamydia DNA (EMILIA) Negative (Negative) Neisseria gonorrhoeae DNA (EMILIA) Negative (Negative) HIV 1&2 Antibody Non-Reactive (Nonreactive) Glucose 1 Hr 50 gm 134 mg/dL (70-140) Group B Strep DNA Negative (Negative) Rhogam given: No Assessment & Plan (1) Decreased movement: (2) Proteinuria affecting : COMMENT: BP at home, parameters given BPP on friday 02/23 planned c/s on tuesday PEC s/sx provided. (3) Breech presentation: QUALIFIERS: Fetus number: single or unspecified fetus Qualified Code(s): O32.1XX0 - Maternal care for breech presentation, not applicable or unspecified COMMENT: failed version. plan LTCS with JV (4) Anemia: QUALIFIERS: Anemia type: iron deficiency Iron deficiency anemia type: unspecified iron deficiency Qualified Code(s): D50.9 - Iron deficiency anemia, unspecified COMMENT: start iron supplement. repeat cbc at 32 weeks. Improved (5) Supervision of high risk , antepartum: COMMENT: [id number], KATELIN 03/04/23, girl MARK Meza, Chuck (6) Oligohydramnios: PLAN: Plan proceed with LTCS breech for oligo
[2023-02-23 13:58] LABS: Syphilis Antibodies Non-reactive
--- NOTE | 2023-02-23 14:05 | EX.PCM.OBRPT ---
Assessment & Plan (1) Oligohydramnios: (2) Breech presentation: QUALIFIERS: Fetus number: single or unspecified fetus Qualified Code(s): O32.1XX0 - Maternal care for breech presentation, not applicable or unspecified COMMENT: failed version. plan LTCS with JV (3) Anemia: QUALIFIERS: Anemia type: iron deficiency Iron deficiency anemia type: unspecified iron deficiency Qualified Code(s): D50.9 - Iron deficiency anemia, unspecified COMMENT: start iron supplement. repeat cbc at 32 weeks. Improved (4) Supervision of high risk , antepartum: COMMENT: [id number], KATELIN 03/04/23, girl MARK Meza, Chuck (5) : QUALIFIERS: Weeks of gestation: 38 weeks Qualified Code(s): Z3A.38 - 38 weeks gestation of COMMENT: GBS neg, NIPT low risk, carrier testing neg. declined afp screen. nl anatomy (6) delivery delivered: COMMENT: LTCS breech oligo 38 Maternal Data Information KATELIN Calculator Estimated Delivery Date Method Current WG Current Estimate 03/04/23 LMP (Certain) 38w 5d Final KATELIN Source: LMP Details Operative Information Pre-Operative Diagnosis: breech Post-Operative Diagnosis: same Indications for : Breech Indications Narrative: Surgeon: Linnette Pavon MD Classification: ZULMA Procedure Type: low transverse [employer] director #1: Renetta [place] Type of Anesthesia: Spinal Special Medications: none Antibiotic Given: Ancef 2 grams IV x1 Drain: Cohen to straight drain Estimated Blood Loss: 800 Fluids Replaced: crystalloid Findings Description of Procedure: Spinal anesthesia was placed without difficulty. Cohen catheter was placed. The patient was placed in the dorsal supine position with leftward tilt. Patient was prepped and draped in the normal sterile fashion. Pfannenstiel skin incision was made with the scalpel and carried through to the underlying layer of fascia with the scalpel. Fascia was nicked in the midline and the incision extended laterally. The rectus bellies were dissected off superiorly and inferiorly with out complication both sharply and bluntly. The peritoneum was entered digitally. The incision was stretched and a low transverse uterine incision was made with the scalpel. The buttox was delivered atraumatically and the right and left legs were swept anteriorly and delivered, followed by the body and the arms which were swept anteriorly and delivered. Gentle traction was placed on the mentum to flex the head which was delivered without complication. The cord was clamped and cut and the was handed off to awaiting nurse. The placenta was delivered spontaneously immediately following and was noted to be intact and have a three-vessel cord. The uterus was exteriorized cleared of all clots and debris, and the incision was closed in a single layer closure using #1 Monocryl. The ovaries and fallopian tubes were noted to be within normal limits. The uterus was returned to the maternal abdomen and gutters were cleared of all clots and debris. The peritoneum was closed with 3-0 Monocryl in a running fashion. Fascia was closed with 0 PDS in a running fashion. Subcutaneous tissue was copiously irrigated and the skin was closed with 3-0 Monocryl in a subcuticular fashion. Mepilex dressing was applied without complication. Patient was taken to recovery in stable condition. It was discussed with the patient that based on the clinical information obtained during this encounter, combined with her history, at this time I would recommend vaginal or cesareans for future deliveries if further pregnancies are desired. Amniotic Membrane Rupture Type: Artificial Amniotic Fluid Description: Clear Placenta Disposition: [facility] Cord Vessel Description: 3 Vessels Delayed Cord Clamping: Yes Complications Risks of Surgery Discussed w/Patient: Bleeding, Infection, Need for Future C-Sections and Injury to surrounding structure(s) including bowel and bladder Vaginal Delivery Complication Complications: None Admit VTE Documentation VTE Present on Admission: No VTE Mechan Device Prophylaxis: SCD's Procedures Urinary/Genital 52xxx-59xxx: 02140 Delivery [facility]
[2023-02-23] MEDS: Lactated Ringers 1,000 ML 150 ML IV (14:08)
[2023-02-23] MEDS: Sodium Citrate/Citric Acid 30 ML UDC PO (16:36)
[2023-02-23] MEDS: Cefazolin 2 GM in 0.9% Normal Saline (100mL Bag) 100 ML IV (16:55)
[2023-02-23] MEDS: Oxytocin 15 Units/NS 250ml 15 UNITS/250 ML IV.SOLN 83 UNITS IV (18:00)
--- NOTE | 2023-02-23 18:41 | DCINST_ITS ---
Discharge Instructions Diet Discharge Diet: No restrictions Activity Discharge Activity: May Not Drive (for 2 weeks or while taking narcotic pain medications.), May Shower and May Take a Tub Bath (in 7 days) May shower in (days): 0 May resume sexual activity in: 4-6 weeks Weight Bearing Status: Full weight bearing Lifting Restrictions: 20 pounds Dressing / Incision Call your doctor if your incision/area has: Continuous Slow Oozing, Sudden Increased Bleeding, Increased Pain/ Swelling, Increased Redness and Foul Smelling Discharge Call your doctor if you observe: Fever of 101 or Higher and Using more than 1 pad per hour (for 2 hours) Suture Line Care: Avoid Pulling/Pushing and Avoid Pinching/Bending Cleanse incision/area with: Soap & Water and Keep Dressing Clean & Dry Follow Up Care Please Follow Up With: Linnette Pavon MD When: Call [phone] to make an appointment for an incision check in 1-2 weeks. Test Results: Test results from this visit will be discussed in further detail at your follow- up appointment, if applicable. Discharge Plan Admission Admit Date/Time: 02/23/23 12:15 Attending Provider: Linnette Pavon Primary Care Provider: Valentino Aranda Discharge Orders/Prescriptions Prescriptions: New naproxen 250 mg tablet 250 - 500 mg PO Q8H PRN PRN (Reason: MILD PAIN) Qty: 30 1RF oxycodone-acetaminophen [Percocet] 5-325 mg tablet 1 tab PO Q6H PRN (Reason: pain) 7 Days Qty: 10 0RF No Action Prenatabs FA 1 TABLET tablet 1 tab PO DAILY omeprazole-sodium bicarbonate [Zegerid] 20-1.1 mg-gram capsule 1 cap PO DAILY ferrous sulfate [Feosol] 325 mg (65 mg iron) tablet 325 mg PO DAILY magnesium 200 mg tablet 200 mg PO DAILY Referrals / Follow Up: Valentino Aranda DO [Primary Care Provider] - Disposition Disposition (needs filled in before D/C Order can be placed): Home, Self Care
[2023-02-23] MEDS: Ketorolac 30 MG/ML Syringe IV (19:43)
[2023-02-23] MEDS: Lactated Ringers 1,000 ML 100 ML IV (21:08)
[2023-02-24] VITALS (8 sets, daily range): BP systolic 108–121; BP diastolic 69–84; PULSE 59–91; RESP 14–18; TEMP 36.1–37.3; O2SAT 95–98
--- NOTE | 2023-02-24 00:33 | NURSING ---
pt ambulated to door and back to bed. pt tolerated well.
[2023-02-24] MEDS: Acetaminophen 500 MG Tablet 1000 MG PO ×4 (01:32→20:25)
[2023-02-24] MEDS: Ketorolac 30 MG/ML Syringe IV ×3 (01:32→14:15)
[2023-02-24] MEDS: 0.9% Saline Lock 10 ML Syringe IV ×2 (01:33→08:03)
[2023-02-24] MEDS: SimETHICONE 80 MG Chewable Tablet PO (05:22)
[2023-02-24 05:23] LABS: Hemoglobin 8.7 g/dL (12.0-15.0); Mean Corp Hgb Conc 32.2 g/dL (32-36); Mean Corpuscular Hgb 32.5 pg (27.0-32.0); Mean Corpuscular Volume 100.7 fL (81-99); Mean Platelet Vol. 9.7 fl (6.2-12.0); Platelet Count 236 K/mm3 (150-450); RBC Distribution Width CV 14.2 % (11.6-14.6); RBC Distribution Width SD 51.8 fl (35.1-43.9); Red Blood Count 2.68 M/mm3 (4.2-5.4); White Blood Count 13.7 K/mm3 (4.4-11.0)
[2023-02-24] MEDS: Senna/Docusate Sodium 1 Tablet PO (10:41)
[2023-02-24] MEDS: Influenza Virus Vac Quad 23-24 60 MCG/0.5 ML SYRINGE IM (11:09)
--- NOTE | 2023-02-24 13:28 | PCM.PN.OB ---
Subjective Subjective Patient doing well without complaints. Tolerating PO. Ambulating and voiding without difficulty. feeding well. Denies chest pain, shortness of breath, calf pain/swelling, fevers, chills, lightheadedness. Objective Data Objective Data Vital Signs: Vital Signs Temp Pulse Resp BP Pulse Ox O2 Del Method 99.1 F 75 14 112/81 H 97 Room Air 02/24/23 12:55 02/24/23 12:55 02/24/23 12:55 02/24/23 12:55 02/24/23 12:55 02/24/23 12:55 Oxygen Delivery Method Room Air Weight: 157 lb Body Mass Index (BMI) 28.7 Intake & Output: Intake and Output for Last 24 Hours 02/22/23 02/23/23 02/24/23 23:59 23:59 23:59 Intake Total 1679.05 / 1679.05 351.67 / 351.67 Output Total 1070 / 1070 1800 / 1800 Balance 609.05 / 609.05 -1448.33 / -1448.33 Lab / Micro Data 02/24/23 05:15 Labs: Laboratory Results - last 24 hr 02/23/23 13:00: Syphilis Total Ab Non-reactive, Blood Type O POSITIVE, Antibody Screen NEGATIVE 02/24/23 05:15: WBC 13.7 H, RBC 2.68 L, Hgb 8.7 L, Hct 27.0 L, MCV 100.7 H, MCH 32.5 H, MCHC 32.2, RDW Std Deviation 51.8 H, RDW Coeff of Shruthi 14.2, Plt Count 236, MPV 9.7 ROS Constitutional Constitutional: Reports systems reviewed and no addt'l complaints, except as documented Cardiovascular Cardiovascular: Reports systems reviewed and no addt'l complaints, except as documented Respiratory/Chest Respiratory/Chest: Reports systems reviewed and no addt'l complaints, except as documented Gastrointestinal Gastrointestinal: Reports systems reviewed and no addt'l complaints, except as documented Physical Exam Const alert, oriented x3 and no apparent distress HEENT Head and Scalp: atraumatic Resp normal respiratory effort GI soft to palpation and non-tender Inspection: incision intact, healing well and drainage (none) Bimanual Exam - Vag & Uterus: uterus non-tender Uterus Palpation: uterus fundus firm (below Umbilicus) Assessment & Plan (1) delivery delivered: COMMENT: LTCS breech oligo 38 PLAN: Plan s/p LTCS PPD # 1 1. routine post care 2. breast feeding- support given 3. rh positive 4. rubella immune
[2023-02-24] MEDS: Naproxen 500 MG Tablet PO (20:46)
[2023-02-25 02:24] VITALS: BP 114/64; PULSE 79; RESP 16; TEMP 37.3; O2SAT 97
[2023-02-25] MEDS: Acetaminophen 500 MG Tablet 1000 MG PO ×2 (02:26→10:08)
[2023-02-25] MEDS: Naproxen 500 MG Tablet PO (04:56)
[2023-02-25 07:50] VITALS: BP 135/85; PULSE 90; RESP 15; TEMP 36.8; O2SAT 98
--- NOTE | 2023-02-25 09:32 | PCM.DC.SUM ---
Providers Date of Admission: 02/23/23 Primary Care Physician: Dr. Valentino Aranda DO Reason For Visit: PRIMARY C SECTION Diagnosis Discharge Diagnosis (1) delivery delivered: Status: Acute Code(s): O82 - Encounter for delivery without indication Medications at Discharge Home Medications vits,calcium no.78-iron fumarate-folic acid 29 mg-1 mg tablet (Prenatabs FA) 1 tab PO DAILY 04/07/17 ferrous sulfate 325 mg (65 mg iron) tablet (Feosol) 325 mg PO DAILY anemia 02/11/23 magnesium 200 mg tablet 200 mg PO DAILY 02/11/23 omeprazole 20 mg-sodium bicarbonate 1.1 gram capsule (Zegerid) 1 cap PO DAILY heartburn 02/11/23 naproxen 250 mg tablet 250 - 500 mg (1 - 2 x 250 mg) PO Q8H PRN PRN MILD PAIN #30 tabs 02/23/23 oxycodone-acetaminophen 5 mg-325 mg tablet (Percocet) 1 tab PO Q6H PRN pain 7 days #10 tabs 02/23/23 Hospital Course Operations section Summary of Care Provided Hospital Course: c/s for breech presentation. stable pp course. Physical Exam Const alert, oriented x3 and no apparent distress HEENT Head and Scalp: atraumatic Resp normal respiratory effort GI soft to palpation and non-tender Inspection: incision intact, healing well and drainage (none) Bimanual Exam - Vag & Uterus: uterus non-tender Uterus Palpation: uterus fundus firm (below Umbilicus) Weight / BMI Weight Weight: 157 lb Body Mass Index (BMI) 28.7 ABG / Lab / Microbiology Data 02/24/23 05:15 D/C Instructions Discharge Diet: No restrictions May shower in (days): 0 May resume sexual activity in: 4-6 weeks Weight Bearing Status: Full weight bearing Call your doctor if your incision/area has: Continuous Slow Oozing, Sudden Increased Bleeding, Increased Pain/ Swelling, Increased Redness and Foul Smelling Discharge Call your doctor if you observe: Fever of 101 or Higher and Using more than 1 pad per hour (for 2 hours) Suture Line Care: Avoid Pulling/Pushing and Avoid Pinching/Bending Cleanse incision/area with: Soap & Water and Keep Dressing Clean & Dry Please Follow Up With: Linnette Pavon MD When: Call [phone] to make an appointment for an incision check in 1-2 weeks. Meaningful Use Info Meaningful Use Diagnoses (Choose all that apply): None applicable Discharge Plan Admission Admit Date/Time: 02/23/23 12:15 Attending Provider: Linnette Pavon Primary Care Provider: Valentino Aranda Discharge Orders/Prescriptions Prescriptions: New naproxen 250 mg tablet 250 - 500 mg PO Q8H PRN PRN (Reason: MILD PAIN) Qty: 30 1RF oxycodone-acetaminophen [Percocet] 5-325 mg tablet 1 tab PO Q6H PRN (Reason: pain) 7 Days Qty: 10 0RF No Action Prenatabs FA 1 TABLET tablet 1 tab PO DAILY omeprazole-sodium bicarbonate [Zegerid] 20-1.1 mg-gram capsule 1 cap PO DAILY ferrous sulfate [Feosol] 325 mg (65 mg iron) tablet 325 mg PO DAILY magnesium 200 mg tablet 200 mg PO DAILY Referrals / Follow Up: Valentino Aranda DO [Primary Care Provider] - Disposition Disposition (needs filled in before D/C Order can be placed): Home, Self Care
[2023-02-25] MEDS: Senna/Docusate Sodium 1 Tablet PO (10:07)
== END 2023-02-25 11:00 | disposition home or self-care (01) | DRG 787 ==
PROVIDERS: Admitting Provider Obstetrics & Gynecology; PCP Family Medicine; Referring Provider Obstetrics & Gynecology; Visit Provider Obstetrics & Gynecology
DX: O32.1XX0 Maternal care for breech presentation, not applicable or unspecified (principal); O41.03X0 Oligohydramnios, third trimester, not applicable or unspecified; D50.9 Iron deficiency anemia, unspecified; O99.02 Anemia complicating childbirth; Z37.0 Single live birth; Z3A.38 38 weeks gestation of pregnancy
CPT/HCPCS: 59025; 59050; 85025; 85027; 86780; 86850; 86900; 86901; 99221; J7120; 90686; A4216; G0378; J2405

== ENCOUNTER → 2023-02-23 | Outpatient (CLI) | payer BC, SELFPAY ==
--- NOTE | 2023-02-23 11:34 | US_ITS ---
STUDY: OBSTETRICAL ULTRASOUND - BIOPHYSICAL PROFILE REASON FOR EXAM: Female, 33 years old Decreased movement PRIOR ULTRASOUND: Comparison is made with prior study dated February 08, 2023. TECHNIQUE: Transabdominal TECHNICAL QUALITY: Adequate. FINDINGS: There is a single intrauterine fetus. The fetus is in a breech presentation. There is demonstrated cardiac activity with a heart rate of 153 bpm. There is decreased amniotic fluid consistent with oligohydramnios. The largest amniotic fluid pocket measures 1.2 cm x 0.9 cm. The amniotic fluid index (DANIEL) is 2.8 cm. The placenta is fundal in location. There are Grade 2 placental changes. Age by LMP: 38 weeks, 5 days. KATELIN by LMP: March 04, 2023. age by prior US: 38 weeks, 3 days. KATELIN by prior US: March 06, 2023. BIOPHYSICAL PROFILE: Breathing Movements (FBM): 2 Gross Body Movements (GBM): 2 Tone (FT): 2 Amniotic Fluid Volume (AFV): 0 TOTAL SCORE: 6 / 8 US/Biophysical Prof W/O Non Stres IMPRESSION: biophysical profile of 6/8. Electronically Signed: Baltazar Bocanegra MD at 12:47 EDT ,
== END | disposition home or self-care (01) ==
LOC: US 11:33
PROVIDERS: PCP Family Medicine; Referring Provider Registered Nurse; Visit Provider Registered Nurse
DX: O36.8190 Decreased fetal movements, unspecified trimester, not applicable or unspecified (principal); Z3A.00 Weeks of gestation of pregnancy not specified
CPT/HCPCS: 76819

== ENCOUNTER → 2025-01-02 | Outpatient (CLI) | payer BC, SELFPAY ==
[2025-01-02 12:38] LABS: Hematocrit 41.4 % (37-47); Hemoglobin 13.6 g/dL (12.0-15.0); Immature Granulocytes Count 0.050 X10^3/uL (0.0-0.0); Mean Corp Hgb Conc 32.9 g/dL (32-36); Mean Corpuscular Volume 94.5 fL (81-99); Mean Platelet Vol. 9.4 fl (6.2-12.0); NRBC Flagged by Analyzer 0 % (0-5); Platelet Count 256 K/mm3 (150-450); RBC Distribution Width CV 12.2 % (11.6-14.6); RBC Distribution Width SD 42.5 fl (35.1-43.9); Red Blood Count 4.38 M/mm3 (4.2-5.4); White Blood Count 8.1 K/mm3 (4.4-11.0)
[2025-01-02 13:15] LABS: AST(SGOT) 17 U/L (<=31); Alanine Aminotransfer ALT/SGPT 22 U/L (<=34); Albumin, Serum 4.5 g/dL (3.5-5.0); Alkaline Phosphatase 68 U/L (35-104); Anion Gap 10 (5-15); BUN 10 mg/dL (4-19); BUN/Creat Ratio 16.1 RATIO (10-20); Calcium,Total 9.8 mg/dL (7.6-11.0); Carbon Dioxide 24.1 mmol/L (21.0-32.0); Chloride 105 mmol/L (98-108); Ferritin 59 ng/mL (22-378); Globulin 2.6 g/dL (2.2-4.2); Glucose 91 mg/dL (70-99); Iron 46 ug/dL (50-170); Potassium 4.3 mmol/L (3.3-5.1); Vitamin D,25 Hydroxy 34.2 ng/mL (30-100)
[2025-01-02 13:47] LABS: Cholesterol 207 mg/dL (<=200); Low Density Lipoprotein Calc. 123 mg/dL; Triglycerides 75 mg/dL; Very Low Density Lipoprotein 15 mg/dL (5-40); cholesterol:hdl ratio screen 3.01
== END | disposition home or self-care (01) ==
LOC: BFHLAB 10:44
PROVIDERS: PCP Family Medicine; Visit Provider Family Medicine
DX: Z00.00 Encounter for general adult medical examination without abnormal findings (principal); D64.9 Anemia, unspecified; R53.83 Other fatigue; E55.9 Vitamin D deficiency, unspecified
CPT/HCPCS: 36415; 80053; 80061; 82306; 82728; 83540; 84443; 85025